=== PATIENT | male | born 1965 | race Caucasian/White ===

== ENCOUNTER 2020-01-21 12:33 | Emergency (ER) | payer OTHER ==
[2020-01-21 12:44] VITALS: BP 126/85; PULSE 71; TEMP 98.8; BMI 29.0
[2020-01-21] MEDS ORDERED: METHOCARBAMOL 500 MG TABLET PO ONE (12:46)
[2020-01-21] MEDS ORDERED: KETOROLAC TROMETHAMINE 60 MG/2 ML VIAL IM ONE (12:46)
--- NOTE | 2020-01-21 12:46 | PDOC ---
Rapid Medical Evaluation Chief Complaint: Back Pain Time Seen by Provider: 01/21/20 12:43 Medical Evaluation: 01/21/20 12:43 I have performed a brief in-person evaluation of this patient. The patient presents with a chief complaint of: worsening right lower back pain for over a month now due to staying at home in the cough and not doing anything for over a month. report pain started as mild which has been progressively getting worse. Denies any trauma or injury Pertinent physical exam findings: moderate TTP to right paravertebral muscle. no midline tenderness. I have ordered the following: Toradol, robaxin The patient will proceed to the ED for further evaluation. Discharge Disposition - Diagnosis Back muscle spasm - Discharge Dispostion Condition at time of disposition: Stable - Referrals - Patient Instructions - Post Discharge Activity
[2020-01-21] MEDS ORDERED: KETOROLAC TROMETHAMINE 60 MG/2 ML VIAL ONE (12:58)
[2020-01-21] MEDS ORDERED: METHOCARBAMOL 500 MG TABLET ONE (12:58)
--- NOTE | 2020-01-21 13:21 | PDOC ---
History of Present Illness - General Chief Complaint: Back Pain Stated Complaint: LWR BACK PAIN Time Seen by Provider: 01/21/20 12:43 History Source: Patient Exam Limitations: No Limitations - History of Present Illness Initial Comments: 01/21/20 13:16 CHIEF COMPLAINT: Lower back pain HISTORY OF PRESENT ILLNESS: 54-year-old male denies medical history presents emergency department for evaluation of waxing and waning lower back pain over the past 3 weeks. Patient reports he is been working from home and spends extended periods of time sitting in his office chair. Reports the pain is nonradiating but does worsen with movement. Patient denies any neurosensory deficits, incontinence of bladder or bowel, urinary retention, saddle anesthesia, foot drop, history of IV drug use or cancer. REVIEW OF SYSTEMS: GENERAL: Afebrile, denies any weakness RESPIRATORY: No cough, wheezing, or hemoptysis. CARDIAC: No chest pain or shortness of breath MUSCULOSKELETAL: Pain to right-sided lower back. No point tenderness. SKIN : No erythema, no bruising, no deformity. GI/: Denies any abdominal pain, no urinary difficulty, incontinence or urinary retention. RECTAL: Denies any difficulty this A.m. NEUROLOGICAL: Denies any numbness or tingling. No neurosensory deficits. PHYSICAL EXAM: GENERAL: The patient is awake, alert, and fully oriented, in no acute distress. RESPIRATORY: Lungs clear bilaterally, no rhonchi wheezes or crackles CARDIAC: S1-S2 audible, no murmur rub or gallop MUSCULOSKELETAL: Pain to right-sided lower back, nonradiating, no tingling or sensory deficit. Less than 2 second cap refill, +2 pedal pulses. GI/: Abdomen soft, nontender, nondistended. No rebound tenderness. No masses palpable. MUSCULOSKELETAL: No spinal point tenderness. Normal reflexive and no deficits to sensation or strength. Palpable muscle spasm present in the right lumbar paraspinous muscles. RECTAL: Deferred patient with no neurological findings SKIN: Warm, Dry, normal turgor, no erythema, no edema no bruising. Past History - Medical History Allergies/Adverse Reactions: Allergies Allergy/AdvReac Type Severity Reaction Status Date / Time No Known Allergies Allergy Verified 01/21/20 12:44 Home Medications: Ambulatory Orders Diazepam [Valium] 5 mg PO ONCE #1 tablet MDD 1 01/21/20 COPD: No - Psycho-Social/Smoking History Smoking History: Never smoked - Substance Abuse Hx (Audit-C & DAST Scrn) How often the patient has a drink containing alcohol: Never Score: In Men: 4 or > Positive; In Women: 3 or > Positive: 0 Screen Result (Pos requires Nsg. Audit-10AR): Negative *Physical Exam - Vital Signs Last Vital Signs Temp Pulse Resp BP Pulse Ox 98.8 F 71 18 126/85 99 01/21/20 12:40 01/21/20 12:40 01/21/20 12:40 01/21/20 12:40 01/21/20 12:40 ED Treatment Course - Medications Given in the ED: ED Medications Discontinued Medications Generic Name Dose Route Start Last Admin Trade Name Bert PRN Reason Stop Dose Admin Ketorolac Tromethamine 60 mg 01/21/20 12:46 01/21/20 13:06 Toradol Injection - IM 01/21/20 12:47 60 mg ONCE ONE Administration Methocarbamol 1,000 mg 01/21/20 12:46 01/21/20 13:06 Robaxin - PO 01/21/20 12:47 1,000 mg ONCE ONE Administration Medical Decision Making - Medical Decision Making 01/21/20 13:18 A/P: 54-year-old male with right-sided lower back pain for 3 weeks Palpable muscle spasm present in the right paraspinous lumbar muscles No bony tenderness, deformity, crepitus or step-off is present Full sensation present distal to the pain. Meds per RME Discharge home with prescription for Valium 1 dose to be taken later today. Patient understands that he should follow-up with his primary doctor if the pain persists for outpatient imaging. Portions of this note have been documented using voice recognition software. As a result, errors may occur in the personal lines sales executive process. Effort has been made to correct all grammatical and personal lines sales executive error, but some may have been missed which may produce sporadic inaccurate personal lines sales executive or nonsensical phrases. Discharge - Discharge Information Problems reviewed: Yes Clinical Impression/Diagnosis: Back muscle spasm Condition: Fair Disposition: HOME - Admission No - Additional Discharge Information Prescriptions: Diazepam [Valium] 5 mg PO ONCE #1 tablet MDD 1 - Follow up/Referral - Patient Discharge Instructions Additional Instructions: Rest. Take Naprosyn as needed for pain. Follow manufacturers instructions for appropriate dosage. You have been prescribed 1 dose of Valium to help with muscle relaxation. Take later this afternoon for back pain. Warm moist heat applied to your back may help alleviate pain. Return to emergency department for discoloration of the foot, numbness or tingling to the foot, worsening pain, or any other concerns. Thank you very much for choosing us to provide your emergent healthcare needs. - Post Discharge Activity
== END 2020-01-21 13:21 | disposition home or self-care (01) ==
LOC: JERFT 12:33
PROC: 3E0233Z Introduction of Anti-inflammatory into Muscle, Percutaneous Approach (ICD-10-PCS; principal; 2020-01-21)
DX: M62.830 Muscle spasm of back (principal)
CPT/HCPCS: 99284-25

== ENCOUNTER 2025-01-03 22:54 | Emergency (ER) | payer OTHER ==
[2025-01-03 23:00] VITALS: BP 114/65; PULSE 95; RESP 18; TEMP 99.1; BMI 29.0
[2025-01-03] MEDS ORDERED: ACETAMINOPHEN INJECTION 100 ML ONE (23:26)
[2025-01-03] MEDS ORDERED: ONDANSETRON 4 MG/2 ML VIAL ONE (23:26)
[2025-01-03] MEDS: ACETAMINOPHEN 1000 MG/100 ML BAG IVPB ONE (23:34)
[2025-01-03] MEDS: ONDANSETRON 4 MG/2 ML VIAL IVPB ONE (23:46)
[2025-01-03] MEDS: LACTATED RINGERS SOLUTION 1000 ML INFUS.BAG IV ONE (23:46)
[2025-01-03 23:49] LABS: HEMATOCRIT 43.5 % (40.1-51.0); HEMOGLOBIN 14.7 g/dL (13.7-17.5); MCHC 33.8 g/dl (32.3-36.5); MEAN CELL VOLUME 90.2 fl (79.0-92.2); MEAN PLT VOLUME 10.7 fl (9.4-12.4); PLATELET COUNT 187 x10^3/uL (163-337); RDW 12.4 % (12.2-16.1)
[2025-01-04 00:20] LABS: ALBUMIN 4.1 g/dl (3.4-5.0); BLOOD UREA NITROGEN 15.3 mg/dL (7-18); CALCIUM 9.3 mg/dL (8.5-10.1)
[2025-01-04 00:23] LABS: CREATININE 1.5 mg/dL (0.55-1.3)
[2025-01-04 00:25] LABS: BILIRUBIN,TOTAL 1.6 mg/dL (0.2-1); TOT PROT 7.8 g/dl (6.4-8.2)
[2025-01-04 01:09] LABS: HIV INTERPRETATION NEGATIVE (NEGATIVE)
[2025-01-04 01:10] LABS: HCV DIAGNOSTIC IN-HOUSE W/RFLX NON-REACTIVE (NONREACTIVE)
== END 2025-01-04 01:05 | disposition home or self-care (01) ==
LOC: JER 22:54
PROC: 3E033NZ Introduction of Analgesics, Hypnotics, Sedatives into Peripheral Vein, Percutaneous Approach (ICD-10-PCS; principal; 2025-01-03)
PROC: 3E033GC Introduction of Other Therapeutic Substance into Peripheral Vein, Percutaneous Approach (ICD-10-PCS; 2025-01-03)
DX: R50.9 Fever, unspecified (principal); R61 Generalized hyperhidrosis; M79.10 Myalgia, unspecified site; R11.0 Nausea
CPT/HCPCS: 0241U-QW; 36415; 71046-TC-FY; 80053; 85025; 86803; 87389; 99284-25